=== PATIENT | female | born 1990 | race Caucasian/White ===

== ENCOUNTER 2016-11-15 22:40 | Emergency (ER) | payer OTHER ==
[2016-11-15 23:36] LABS: BASOPHIL % 0.1 % (0-2); PLATELET COUNT 215 x10^3mcL (130-400); RED CELL DISTRIBUTION WIDTH 13.7 % (11.5-14.5)
[2016-11-15 23:56] LABS: CALCIUM 9.4 mg/dL (8.5-10.1); CHLORIDE SERUM 101 mmol/L (98-107); GFR1 > 60 mL/min; GLUCOSE SERUM 119 mg/dL (74-106); POTASSIUM SERUM 3.6 mmol/L (3.5-5.1); SODIUM SERUM 139 mmol/L (136-145)
[2016-11-16 00:05] LABS: ALBUMIN 4.3 g/dL (3.4-5.0); ALKALINE PHOSPHATASE 61 U/L (46-116); ALT/SGPT 19 U/L (14-59); AST/SGOT 18 U/L (15-37); BILIRUBIN TOTAL 0.4 mg/dL (0.20-1.00); TOTAL PROTEIN, SERUM 7.9 g/dL (6.4-8.2)
[2016-11-16 01:12] VITALS: BP 106/53
== END 2016-11-16 01:12 | disposition home or self-care (01) ==
LOC: ED 22:40
PROVIDERS: Emergency Medicine
DX: M79.1 Myalgia (principal); F41.9 Anxiety disorder, unspecified
CPT/HCPCS: J1200; J1885; J2270; J7030; J7613; J7644; Q0092

== ENCOUNTER 2017-05-21 21:00 | Emergency (ER) | payer OTHER ==
[~2017-05-21] VITALS: Ht 165.1 cm; Wt 74.8 kg
[2017-05-21 21:17] VITALS: Ht 165.1 cm; Wt 74.8 kg
[2017-05-21 23:20] VITALS: BP 128/84
== END 2017-05-21 23:20 | disposition home or self-care (01) ==
LOC: ED 21:00
DX: S93.401A Sprain of unspecified ligament of right ankle, initial encounter (principal); S80.02XA Contusion of left knee, initial encounter; S60.222A Contusion of left hand, initial encounter; S60.221A Contusion of right hand, initial encounter; Z88.1 Allergy status to other antibiotic agents; Z88.8 Allergy status to other drugs, medicaments and biological substances; W01.0XXA Fall on same level from slipping, tripping and stumbling without subsequent striking against object, initial encounter; Y93.89 Activity, other specified; Y92.89 Other specified places as the place of occurrence of the external cause; Y99.8 Other external cause status
CPT/HCPCS: Q0092

== ENCOUNTER 2018-09-05 20:21 | Emergency (ER) | payer OTHER ==
[~2018-09-05] VITALS: Ht 162.6 cm; Wt 79.4 kg
[2018-09-05 20:31] VITALS: Ht 162.6 cm; Wt 79.4 kg
[2018-09-05 23:30] VITALS: BP 117/68
== END 2018-09-05 23:30 | disposition home or self-care (01) ==
LOC: ED 20:21
DX: T78.49XA Other allergy, initial encounter (principal); R42 Dizziness and giddiness; F41.9 Anxiety disorder, unspecified; Z88.1 Allergy status to other antibiotic agents; Z88.8 Allergy status to other drugs, medicaments and biological substances; Z88.6 Allergy status to analgesic agent; X58.XXXA Exposure to other specified factors, initial encounter
CPT/HCPCS: 82962; J2930; J7030; J7620; Q0162